=== PATIENT | female | born 1995 | race Caucasian/White ===

== ENCOUNTER 2016-06-24 17:41 | Emergency (ER) | payer OTHER ==
[~2016-06-24] VITALS: Ht 157.5 cm; Wt 48.0 kg
[2016-06-24 17:59] VITALS: BP 112/83
== END 2016-06-24 19:30 | disposition left against medical advice (07) ==
LOC: EMS 17:43
DX: R10.9 Unspecified abdominal pain (principal); Z53.21 Procedure and treatment not carried out due to patient leaving prior to being seen by health care provider